=== PATIENT | male | born 1985 | race African-American/Black ===

== ENCOUNTER 2023-11-02 15:13 | Emergency (ER) | payer MEDICAID, SELFPAY ==
[2023-11-02 15:31] VITALS: BP 110/76; PULSE 75; RESP 18; TEMP 36.8; O2SAT 97; BMI 25.5
--- NOTE | 2023-11-02 15:31 | ED.URI ---
HPI - URI/Sore Throat General Chief Complaint: Upper Respiratory Symptoms Stated Complaint: Covid symptoms Time Seen by Provider: 11/02/23 15:58 Source: patient Mode of arrival: ambulatory Limitations: no limitations History of Present Illness HPI Narrative: this is a 38-year-old male with no known medical history presents to the ER with complaints of 3 days of cough, feeling lightheaded, stuffy nose, body aches and sore throat. No fevers, chills, chest pain, shortness of breath, vomiting, diarrhea, abdominal pain, neck pain, neck stiffness, skin rash. no recent travel or sick contact Related Data Allergies Allergy/AdvReac Type Severity Reaction Status Date / Time No Known Allergies Allergy Verified 11/02/23 15:31 Review of Systems Review of Systems: Yes all other systems are reviewed and are negative Constitutional: Constitutional: Reports no additional constitutional complaints, Reports body ache(s), Denies chills, Denies fever(s), Denies headache(s) and Denies weakness Eyes: Eyes: Reports no additional eye complaints and Denies change in vision ENT: Reports system reviewed and no additional complaints, except as documented, Reports dizziness, Denies headache(s), Reports nasal congestion, Denies nasal discharge, Denies neck pain and Reports sore throat Cardiovascular: Cardiovascular: Reports no additional cardiovascular complaints, Denies chest pain, Denies leg edema and Denies dyspnea Respiratory: Respiratory: Reports no additional respiratory complaints, Reports cough and Denies dyspnea Gastrointestinal: Gastrointestinal: Reports no additional gastrointestinal complaints, Denies abdominal pain, Denies diarrhea, Denies nausea and Denies vomiting Genitourinary: Genitourinary: Denies urinary incontinence Musculoskeletal: Musculoskeletal: Reports no additional musculoskeletal complaints, Denies back pain, Denies arthralgias, Denies joint swelling, Denies neck pain, Denies numbness and Denies tingling Integumentary/Breasts: Skin/Breast: Reports system reviewed and no additional complaints, except as docu and Denies rash Neurologic: Reports system reviewed and no additional complaints, except as documented, Denies Abnormal speech present, Reports dizziness, Denies headache(s), Denies numbness, Denies tingling and Denies weakness PMFSH Past Medical History Attestation statement: The following information was validated with the patient. Source: old records reviewed and nursing notes reviewed Physical Exam Vital Signs: Vital Signs: Last Vital Signs Temp 98.2 F 11/02/23 15:31 Pulse 75 11/02/23 15:31 Resp 18 11/02/23 15:31 BP 110/76 11/02/23 15:31 Pulse Ox 97 11/02/23 15:31 O2 Del Method Room Air 11/02/23 15:31 BMI result Body Mass Index 25.5 Const: General: cooperative, healthy appearing, comfortable and no acute distress Orientation/consciousness: patient oriented x3 Limitations: no limitations HEENT: Head: Yes normal to inspection Ears: hearing grossly normal bilaterally and TM's normal bilaterally General nose exam: Normal external nose present Face and sinus: Yes normal facial exam Mouth: Normal oral and palatal mucosa present Throat: Yes posterior oropharynx normal, Yes tonsils normal and Yes uvula midline Eyes: General: appearance normal, both eyes and all related structures Pupils: Equal, round and reactive pupils present Neck: Neck: Yes normal visual inspection, Yes full ROM, Yes no lymphadenopathy and Yes no meningeal signs Chest: Chest palpation & inspection: normal inspection of the chest Resp: Effort & Inspection: normal respiratory effort Auscultation: clear to auscultation bilaterally Cardio: Rate: regular rate Rhythm: regular rhythm Peripheral pulses: Peripheral pulses 2+ throughout GI: Inspection: Yes normal to inspection Palpation (GI): Soft to palpation and nontender Auscultation: normal bowel sounds Back/Spine/Pelvis: Thoracic/Lumbar Spine: thoracic and lumbar spine normal to inspection Skin: General skin exam: no rashes or lesions noted Neuro: General: patient oriented x3, no meningeal signs, no focal motor deficits and normal sensation to monofilament Cranial nerves: Yes Equal, round and reactive pupils present Cognition (Neuro): normal cognition Speech: No Abnormal speech present Gait exam (Neuro): Normal gait present Motor exam (neuro): 5/5 motor strength present throughout Extrem: General: Yes normal to inspection, Yes no pedal edema and Yes no calf tenderness Course Course Course Narrative: This is an RME: Additional HPI, ROS, PE not included below will be deferred to primary provider. Patient is a 38-year-old male who presents emergency department for evaluation of lightheadedness, nasal congestion, body aches, sore throat x3 days. Sent home from work early, needs return to work note. Plan: Viral testing, strep a Medical Decision Making Medical Decision Making MDM Narrative: this is a 38-year-old male with no known medical history presents to the ER with complaints of 3 days of cough, feeling lightheaded, stuffy nose, body aches and sore throat. No fevers, chills, chest pain, shortness of breath, vomiting, diarrhea, abdominal pain, neck pain, neck stiffness, skin rash. no recent travel or sick contact Exam is benign VSS Will send viral and strep testing Differential Diagnosis Differential Diagnoses: The differential diagnosis associated with the presentation includes influenza, viral syndrome, strep pharyngitis Low concern for RPA, MANAGER MAC, epiglottitis, Lexa's angina Admission/Observation Consideration of admission/observation: Escalation of care including admission/observation considered COVID test is positive. No hypoxia requiring supplemental oxygen and or admission to the hospital Lab Data [facility] Lab Attestation statement: I reviewed the patient's lab results. Labs: Lab Results 11/02/23 Range/Units 15:43 Influenza Type A (PCR) NEGATIVE (Negative) Influenza Type B (PCR) NEGATIVE (Negative) RSV RNA Qual (PCR) NEGATIVE (Negative) SARS-CoV-2 RNA (RT-PCR) POSITIVE A (Negative) S. pyogenes GrpA YVETTE Negative (Negative) Tests considered The following testing was considered but not selected: no hypoxia or tachypnea to suggest need for chest x-ray Prescription Management I considered prescription management with: Antiviral and Antibiotic Discharge Plan Discharge Clinical Impression: COVID-19 Patient Disposition: Home, Self-Care Instructions: COVID-19 (Coronavirus Disease 2019) (ED) Additional Instructions: Your COVID test is positive. Please quarantine for 5 days then mask for an additional 5 days when leaving the house. Take Motrin or Tylenol for any pain or fever Increase fluids, rest Return for any chest pain or shortness of breath We did discuss the antiviral medications that are available for the treatment of COVID with they do have quite a few side effects so we decided not to prescribe medication for you after we discuss this with you. Referrals: Physician,Florencio J [Primary Care Provider] - 1 week Stand Alone Forms: Work/School Release
[2023-11-02 16:03] LABS: IDNOW Serial# 08D9AD1C; Strep A Nucleic Acid Negative (Negative)
[2023-11-02 16:27] LABS: Influenza A PCR NEGATIVE (Negative); Influenza B PCR NEGATIVE (Negative); Resp Syncy Virus RNA Qual PCR NEGATIVE (Negative); SARS COV2 PCR INHOUSE POSITIVE (Negative)
== END 2023-11-02 17:10 | disposition home or self-care (01) ==
PROVIDERS: Nurse Practitioner Family; Emergency Provider Emergency Medicine
DX: U07.1 COVID-19 (principal); R05.9 Cough, unspecified; R42 Dizziness and giddiness; J02.9 Acute pharyngitis, unspecified
CPT/HCPCS: 0241U; 87651; 99283

== ENCOUNTER 2024-07-27 10:32 | Emergency (ER) | payer MEDICAID, SELFPAY ==
--- NOTE | ~2024-07-27 | XR_ITS ---
EXAMINATION: XR HAND, RIGHT CLINICAL INFORMATION: trauma, pain COMPARISON: None available. TECHNIQUE: PA, lateral, and oblique views of the right hand. FINDINGS: The patient appears to demonstrate a soft tissue defect of the soft tissues at the radial aspect of the palm. No radiopaque foreign body is identified. No fracture or dislocation is appreciated. Bony mineralization appears preserved. No lytic or sclerotic bony lesion is seen. The joint spaces appear maintained. XR/XR hand RT min 3V IMPRESSION: Findings as above. Electronically signed by: Frankie Amaya MD 07/27/2024 01:07 PM EST
[2024-07-27 10:39] VITALS: BP 128/82; PULSE 82; O2SAT 97
[2024-07-27 11:21] VITALS: BP 114/79; PULSE 60; RESP 16; TEMP 37; O2SAT 98; BMI 25.0
--- NOTE | 2024-07-27 11:22 | ED_ITS ---
HPI - General Adult General Chief complaint: Wound/Laceration Stated complaint: Hand laceration from knife 3 inches deep r hand Time Seen by Provider: 07/27/24 11:30 Source: patient Mode of arrival: ambulatory Limitations: no limitations History of Present Illness ED Provider: Evita Thornton PA-C HPI narrative: Patient is a 39 year old assigned male at with no reported medical history presenting to the emergency department today with a right hand laceration. Patient states that his girlfriend and him were horsing around when she turned toward him with a knife and he reflexively went to catch it and caught the blade - cutting his right hand. Patient states that he is up to date on his tetanus status. Patient states that he is unable to straighten his right index finger. Patient denies any dizziness, lightheadedness, abdominal pain, nausea, vomiting, fever, chills, blurry vision, double vision, loss of vision, chest pain, difficulty breathing, shortness of breath, back pain, night sweats, pain with urination, increased urinary frequency, increased urinary urgency, blood in his urine or stool, syncope or a near syncopal episode, bowel incontinence, bladder incontinence, or any other complaints at this time. Onset (ago): minute(s) Location: right and upper extremity Relieving factors: none Exacerbating factors: none Associated symptoms: denies other symptoms Treatments prior to arrival: none Related Data Previous Rx's ?Medication ?Instructions ?Recorded amoxicillin 875 mg-potassium 1 tab PO BID 10 days #20 tabs 07/27/24 clavulanate 125 mg tablet Allergies Allergy/AdvReac Type Severity Reaction Status Date / Time No Known Allergies Allergy Verified 07/27/24 11:23 Review of Systems 2 Constitutional: Constitutional: Reports no additional constitutional complaints, Denies chills, Denies fever(s) and Denies night sweats Eyes: Eyes: Reports no additional eye complaints, Denies blurry vision, Denies change in vision, Denies diplopia, Denies eye discharge, Denies loss of vision and Denies eye pain ENT: Denies dizziness Cardiovascular: Cardiovascular: Reports no additional cardiovascular complaints, Denies chest pain, Denies lightheadedness, Denies Loss of Consciousness and Denies dyspnea Respiratory: Respiratory: Reports no additional respiratory complaints and Denies dyspnea Gastrointestinal: Gastrointestinal: Reports no additional gastrointestinal complaints, Denies abdominal pain, Denies melena, Denies hematochezia, Denies change in bowel habits and Denies change in stool character Genitourinary: Genitourinary: Reports no additional male genitourinary complaints, Denies hematuria, Denies oliguria, Denies difficulty urinating, Denies dysuria, Denies urinary frequency, Denies urinary hesitancy, Denies urinary incontinence and Denies urinary urgency Musculoskeletal: Musculoskeletal: Reports no additional musculoskeletal complaints Comments: right hand laceration inability to move right index finger Neurologic: Denies dizziness and Denies loss of vision Psychiatric: Psychiatric: Reports no additional psychiatric complaints Endocrine: Endocrine: Reports no additional endocrine complaints Hematologic/Lymphatic: Hematologic/Lymphatic: Reports no additional hematologic/lymphatic complaints Allergic/Immunologic: Allergic/Immunologic: Reports no additional allergic/immunologic complaints PMFSH Past Medical History Attestation statement: The following information was validated with the patient. Source: old records reviewed and nursing notes reviewed Physical Exam ED Vital Signs: Vital Signs - 24 hr 07/27/24 11:21 07/27/24 13:07 Temperature 98.6 F 98.6 F Pulse Rate 60 60 Respiratory Rate 16 16 Blood Pressure 114/79 114/79 Pulse Oximetry 98 98 Oxygen Delivery Method Room Air Room Air BMI result Body Mass Index 25.0 Const General: cooperative, no acute distress, alert and awake Nutritional Appearance: well nourished Orientation/consciousness: patient oriented x3 Limitations: no limitations HENMT Head: Yes normal to inspection and Yes atraumatic Ears: hearing grossly normal bilaterally and external ears normal General nose exam: Normal external nose present, no nasal discharge noted and no epistaxis Face and sinus: Yes normal facial exam, No abrasion and No laceration Mouth: Normal oral and palatal mucosa present, no drooling and no muffled voice Eyes General: appearance normal, both eyes and all related structures Periorbital: periorbital findings normal Eyelids: Yes eyelids normal Conjunctivae: conjunctivae normal Pupils: Equal, round and reactive pupils present EOM: EOMs intact bilaterally Neck Neck: Yes normal visual inspection, Yes full ROM and Yes no lymphadenopathy Chest Chest palpation & inspection: normal inspection of the chest Resp Effort & Inspection: normal respiratory effort and able to speak in complete sentences GI Inspection: Yes normal to inspection Neuro General: patient oriented x3 and moves all extremities Cranial nerves: Yes Equal, round and reactive pupils present Cognition (Neuro): normal cognition Extrem Other: inability to move the right index finger General: Yes capillary refill normal Psych Appearance: grossly normal Mental Status: mental status grossly normal Affect: normal affect Attitude: cooperative Thought process: Normal thought process present Thought content: Normal thought content present Insight: Good insight present (Psych) Course Course Course Narrative: RME: 39 yold male presents to the ED for right hand laceration after grabbing knife from [employer] as a joke while she was trying to cook. Palm laceration on exam with tendon exposure. unable to move left index finger. tendon cut. laceration is deep. [place] [facility] [place] [facility] Medications Administered Discontinued Medications Generic Name Dose Route Start Last Admin Trade Name Freq PRN Reason Stop Dose Admin Amoxicillin/Clavulanate Potassium 875 mg 07/27/24 12:38 07/27/24 13:13 Amoxicillin/Potassium Clav 875 Mg Tablet PO 07/27/24 12:39 875 mg ONCE ONE Administration Lidocaine HCl 20 ml 07/27/24 11:44 07/27/24 11:53 Lidocaine Hcl 1 % Mpf 5 Ml Vial SUBCUT 07/27/24 11:45 20 ml ONCE ONE Administration Morphine Sulfate 4 mg 07/27/24 11:44 07/27/24 11:52 Morphine Sulfate 4 Mg/Ml Cartridge IM 07/27/24 11:45 4 mg ONCE ONE Administration Protocol Procedures Laceration Laceration 1: Site: hand Side (If applicable): right Size (cm): 10 Description: linear Depth: involves tendon Local Anesthetic: lidocaine 1% Amount of anesthesia used (mL): 10 Pre-repair: wound explored and irrigated extensively Skin layer closed with: other (prolene) Size (cm): 4-0 Number of sutures: 6 Technique: simple, interrupted Medical Decision Making Medical Decision Making [facility] Narrative: Patient is a 39 year old assigned male at with no reported medical history presenting to the emergency department today with a right hand laceration. Patient's physical exam showed a 10cm right hand laceration with tendon involvement and the inability of the patient to flex or extend the right index finger. Patient's right hand x-ray showed no acute gricelda process. I spoke to the orthopedist communication analyst who recommended loosely approximating the wound edges and having the patient follow up in their office for probable surgery on 07/29/2024. I explained my physical exam findings as well as all test results to the patient. I answered all questions asked by the patient. I loosely approximated the patient's wound edges with 6 simple interrupted sutures, without incident. Patient's PMS / ROM was the same pre and post procedure as noted in the physical exam portion of this note. Patient's wound was then bandaged with a non stick dressing and loose web roll gauze. I stressed the importance of the patient taking his medication as directed (either prescribed or as the over the counter packaging recommends). I stressed the importance of the patient following up with his primary care provider and the orthopedic team on 07/28/2024 as directed. I stressed the importance of the patient returning to the emergency department immediately if his symptoms were to worsen or if he were to develop any dizziness, shortness of breath, difficulty breathing, chest pain, blurry vision, loss of vision, nausea, vomiting, abdominal pain, fever, chills, back pain, or any other complaints. Patient verbalized agreement and understanding with this treatment plan and discharge. Differential Diagnosis Differential Diagnoses: The differential diagnosis associated with the presentation includes Laceration Lacerated tendon Admission/Observation Consideration of admission/observation: Escalation of care including admission/observation considered Patient would have been admitted to the hospital had his work up had any findings where hospital admission was appropriate and his clinical presentation warranted hospital admission. Consult Healthcare Provider Management of the patient was discussed with: Denture Packer (spoke to the orthopedic team as noted in the MDM Rationale portion of this note.) Independent Interpretation I performed an independent interpretation of an: Plain X-Ray Interpretation: My interpretation is in agreement with the radiologist's impression of this imaging study. L EXAMINATION: XR HAND, RIGHT CLINICAL INFORMATION: trauma, pain COMPARISON: None available. TECHNIQUE: PA, lateral, and oblique views of the right hand. FINDINGS: The patient appears to demonstrate a soft tissue defect of the soft tissues at the radial aspect of the palm. No radiopaque foreign body is identified. No fracture or dislocation is appreciated. Bony mineralization appears preserved. No lytic or sclerotic bony lesion is seen. The joint spaces appear maintained. XR/XR hand RT min 3V IMPRESSION: Findings as above. Electronically signed by: Frankie Amaya MD 07/27/2024 01:07 PM [facility] [place] Dictated By: Frankie Amaya Signed By: Electronically signed by Frankie Amaya 07/27/24 1307 Radiology Impression Discussion of test interpretation with radiology: I have reviewed the radiologist's reading. Prescription Management I considered prescription management with: Antibiotic (given patient's clinical presentation and recommendations from the orthopedic team - patient prescribed an antibiotic. ) Critical Care Time Critical Care Time Critical Care Time: Yes Total Critical Care Time: 42 Attestation: I spent 42 minutes of Critical Care Time with this patient. This does not include time spent on separately reported billable procedures. Discharge Plan Discharge Clinical Impression: Hand laceration Patient Disposition: Home, Self-Care Instructions: Laceration (DC) Additional Instructions: Your laceration is complex and will require surgical intervention. Today - I loosely approximated the edges of your wound. Your wound will be completely repaired by the orthopedic team in the coming days. Take your antibiotic as prescribed. Do NOT get the affected area wet. If you bleed through the bandage - you may change it with the supplies given. If you repeatedly bleed through - return to the ER [facility]. Have NOTHING by mouth after midnight tonight just in case the orthopedic team decides to perform the repair tomorrow (07/28/2024). Follow up with your primary care provider and the orthopedic team on 07/28/2024. Return to the emergency department immediately if your symptoms worsen or if you develop any dizziness, shortness of breath, difficulty breathing, chest pain, blurry vision, loss of vision, nausea, vomiting, abdominal pain, fever, chills, back pain, or any other complaints. Prescriptions: New amoxicillin-pot clavulanate 875-125 mg tablet 1 tab PO BID 10 Days Qty: 20 0RF Referrals: [facility] Family Medicine [Provider Group] (Call to establish and follow up with a primary care provider. If you already have a primary care provider, please follow up with them.) [facility] Primary [facility] [Provider Group] (Call to establish and follow up with a primary care provider. If you already have a primary care provider, please follow up with them.) [facility] Primary CareLana [Provider Group] (Call to establish and follow up with a primary care provider. If you already have a primary care provider, please follow up with them.) [facility] Orthopedic Surgeons [Provider Group] (Call to establish and follow up with the orthopedic group tomorrow (07/28/2024).) Stand Alone Forms: Work/School Release Interventions: ED Discharge Assessment Last Done: 07/27/24 13:07 Discharge Date/Time: 07/27/24 13:15 Print Language: Maltese
[2024-07-27] MEDS: Morphine Sulfate 4 MG/ML CARTRIDGE IM (11:52)
[2024-07-27] MEDS: Lidocaine HCl 1 % MPF 5 ML VIAL 20 ML SUBCUT (11:53)
[2024-07-27 13:07] VITALS: BP 114/79; PULSE 60; RESP 16; TEMP 37; O2SAT 98
[2024-07-27] MEDS: Amoxicillin/Potassium Clav 875 MG TABLET PO (13:13)
== END 2024-07-27 13:15 | disposition home or self-care (01) ==
PROVIDERS: Emergency Provider Emergency Medicine Emergency Medical Services
DX: S61.411A Laceration without foreign body of right hand, initial encounter (principal); W26.0XXA Contact with knife, initial encounter; Y93.83 Activity, rough housing and horseplay; Y92.9 Unspecified place or not applicable; Y99.9 Unspecified external cause status
CPT/HCPCS: 12044; 73130; 96372; 99282; 99284; J2003; J2270

== ENCOUNTER 2024-07-28 14:57 | Outpatient (AMB) | payer MEDICAID, SELFPAY ==
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
== END 2024-07-28 16:37 | disposition home or self-care (01) ==
PROVIDERS: Visit Provider Orthopaedic Surgery
DX: S61.411A Laceration without foreign body of right hand, initial encounter (principal); S61.219A Laceration without foreign body of unspecified finger without damage to nail, initial encounter; S66.921A Laceration of unspecified muscle, fascia and tendon at wrist and hand level, right hand, initial encounter; S64.40XA Injury of digital nerve of unspecified finger, initial encounter
CPT/HCPCS: 99204

== ENCOUNTER → 2024-07-28 14:57 | Outpatient (BNVA) | payer MEDICAID, SELFPAY | PROVIDERS: Visit Provider Orthopaedic Surgery | DX: S61.411A Laceration without foreign body of right hand, initial encounter (principal); S61.219A Laceration without foreign body of unspecified finger without damage to nail, initial encounter; S66.921A Laceration of unspecified muscle, fascia and tendon at wrist and hand level, right hand, initial encounter; S64.40XA Injury of digital nerve of unspecified finger, initial encounter; R20.0 Anesthesia of skin | CPT/HCPCS: 99202 ==

== ENCOUNTER 2024-12-29 20:38 | Emergency (ER) | payer MEDICAID, SELFPAY ==
[2024-12-29 20:50] VITALS: BP 103/59; PULSE 58; RESP 16; TEMP 36.9; O2SAT 98; BMI 23.6
--- NOTE | 2024-12-29 20:54 | ED.GENADULT ---
HPI - General Adult General Chief complaint: Extremity Problem Stated complaint: Unable to move R index finger/post surgery Time Seen by Provider: 12/30/24 01:17 Source: patient, RN notes reviewed and old records reviewed Mode of arrival: ambulatory Limitations: no limitations History of Present Illness ED Provider: Bebeto HPI narrative: 39-year-old male presents for evaluation of ?I need to know what is going on with my finger. ? The patient was seen in this ER on 07/27/2024 for a complicated a hand laceration. He follow up with up the following day with hand surgery, Dr. Ryan and was ultimately referred to [facility] for definitive treatment. He had a laceration to the right index finger flexor tendon as well as radial digital nerve. The patient followed up with Dr. Garrison, hand surgery in [facility] and had corrective surgery He was concerned that it has been several months and he still has reduced range of motion to the right index finger He currently denies any pain to the area Related Data Previous Rx's ?Medication ?Instructions ?Recorded amoxicillin 875 mg-potassium 1 tab PO BID 10 days #20 tabs 07/27/24 clavulanate 125 mg tablet hydrocodone 5 mg-acetaminophen 325 1 tab PO Q8H PRN pain, severe #6 07/28/24 mg tablet tab-caps Allergies Allergy/AdvReac Type Severity Reaction Status Date / Time No Known Allergies Allergy Verified 12/29/24 20:53 Review of Systems Constitutional: Constitutional: Denies chills and Denies fever(s) ENT: Denies vertigo Musculoskeletal: Musculoskeletal: Denies arthralgias, Denies joint swelling, Reports limited range of motion and Reports numbness Neurologic: Denies vertigo and Reports numbness Psychiatric: Psychiatric: Denies anxiety [facility] Social History Social History Smoked in Last 30 Days: No Use of substances other than those prescribed or required for medical reasons: No Advance Directives: No Do you have a plan to hurt others: No Plan Physical Exam ED Vital Signs: Vital Signs - 24 hr 12/29/24 20:50 12/30/24 01:00 12/30/24 01:36 Temperature 98.5 F 97.8 F 97.8 F Pulse Rate 58 74 74 Respiratory Rate 16 17 17 Blood Pressure 103/59 L 135/78 135/78 Pulse Oximetry 98 99 99 Oxygen Delivery Method Room Air Room Air Room Air BMI result Body Mass Index 23.6 Const General: healthy appearing, comfortable, no acute distress, alert and awake Nutritional Appearance: well nourished Orientation/consciousness: patient oriented x3 HENMT Head: Yes normocephalic and Yes atraumatic Eyes Eyelids: Yes eyelids normal Conjunctivae: conjunctivae normal Sclerae: sclerae normal Corneas: corneas normal Pupils: Equal, round and reactive pupils present EOM: EOMs intact bilaterally Neck Neck: Yes full ROM Resp Effort & Inspection: normal respiratory effort, able to speak in complete sentences and not labored Skin General skin exam: elasticity normal Neuro General: patient oriented x3 Cranial nerves: Yes Equal, round and reactive pupils present and Yes Bilaterally intact EOM present Cognition (Neuro): normal cognition Extrem Other: Healed scar to the radial aspect of the base of the right index finger. The patient has reduced range of motion with flexion and extension. He is able to extend the finger to about 150?. He was only able to flex the finger to about 120? of flexion. Strength is limited with flexion-extension of the right index finger. There was no edema, no significant tenderness to palpation. Course Course Course Narrative: RME; 39-year-old male status post surgical repair for tendon injury of right index finger presents to ED for still unable to move finger. Patient has had referral for gastroparesis and [facility] where he was informed he did not do hand therapy. And it is not swollen not red negative for any signs of infection arterial occlusion. Medical Decision Making Medical Decision Making MDM Narrative: 39-year-old male presents for evaluation of inability to move his right index finger completely. The patient had a very complicated laceration in July of last year, 5 months ago. It does not appear that he was in the other acute issues. He has not had any further injury. There is no evidence of infection. The patient's seems upset with his lack of improvement after his surgery. I explained to the patient that he had a quite extensive laceration based on the notes and it was possible that he may never regained complete function of the right index finger. He will be referred back to hand surgery for follow-up Differential Diagnosis Differential Diagnoses: The differential diagnosis associated with the presentation includes Laceration of right index finger. Laceration of the nerve of the index finger. Laceration of tendon of index finger. Neuropathy Discharge Plan Discharge Clinical Impression: Injury of digital nerve of finger of right hand Patient Disposition: Home, Self-Care Additional Instructions: You need to follow up with hand surgery, the office number of Dr. Ryan is attached. It may not be possible to recover 100% function of the index finger due to the laceration of your tendon and nerve You may use ibuprofen or Tylenol as needed for pain Prescriptions: No Action amoxicillin-pot clavulanate 875-125 mg tablet 1 tab PO BID 10 Days Qty: 20 0RF hydrocodone-acetaminophen 5-325 mg tablet 1 tab PO Q8H PRN (Reason: pain, severe) Qty: 6 0RF Rx Instructions: Partial Fill upon patient request. Referrals: Kailee Ryan MD [Physician] - (follow up to nerve and tendon laceration of right hand) Interventions: ED Discharge Assessment Last Done: 12/30/24 01:36 Discharge Date/Time: 12/30/24 01:36 Print Language: Arabic
--- OUTSIDE RECORDS SUMMARY | 2024-12-29 23:32 | XMS_ITS | Clinical Summary ---
Author Organization [employer] Address [address] [place] [address] Care Team Providers Care Women'S Activities Adviser Name Role Phone Josias Romo MD Primary Care Prov ider Allergies No known active allergies Medications * This document contains information received from the source organization and may not represent a complete record from that organization. cyclobenzaprine (Flexeril) 10 MG tablet Take 1 tablet (10 mg) by mouth 3 times daily for 10 days. 30 tablet 09/03/2024 Active Active Problems Problem Noted Date Diagnosed Date Encounter for medical examination to establish c are 09/03/2024 Assessment & Plan (09/03/2024 2:28 PM EST): No pcp previously Hospitalizations: - ER 07/27 due to right hand palmar aspect laceration with a knife while cooking Pmhx: asthma (not on medication/treatment) Pshx: - All:- Meds: Ibuprofen PRN Extensor tendon laceration of right hand with op en wound 09/03/2024 Assessment & Plan (09/03/2024 2:35 PM EST): Patient went to er on 07/27 were laceration was closed and given antibiotics. He was referred to [facility], were he underwent tendon repair on 08/03. 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 09/03/2024 Assessment & Plan (09/03/2024 2:36 PM EST): Will refer to [facility] Acute right-sided thoracic back pain 09/03/2024 Assessment & Plan (09/03/2024 2:37 PM EST): Shoulder blade pain, started about 1 week ago, will prescibe muscle relaxan, may apply ice Encounters Date Type Department Care Team Description 11/20/2024 Population Health Risk Score [facility] ([facility]) Department [address] [place] [id number] Provider, Population Health Generic from Last 3 Months Family History Medical History Relation Name Comments No Known Problems Father No Known Problems Mother Cancer Neg Hx Relation Name Status Comments Father Mother Social History Tobacco Use Types Packs/Day Years Used Date Smoking Tobacco: Former Cigarettes 0.5 18 S tarted: 09/09/2003 Passive Smoke Exposure: Past Smokeless Tobacco: Never Alcohol Use Standard Drinks/Week Comments Never 0 (1 standard drink = 0.6 oz pur e alcohol) Depression Answer Date Recorded Patient Health Questionnaire-9 Score 12 09/03/2024 Patient Health Questionnaire-9 Score 12 09/03/2024 Last PHQ-9: Questionnaire Data Not on file 1 11/04/2023 Housing Stability Answer Date Recorded What is your housing situation today? I have herson martinez 09/03/[address] you li ve. Do you have problems with any of the following? None of the above 09/03/2024 Food Insecurity Answer Date Recorded Within the past 12 months, y ou worried that your food would run out before you got money to buy more: Never True 09/03/2024 Within the past 12 months,th e food you bought just didn't last and you didn't have enough money to get more: Never True Transportation Answer Date Recorded In the past 12 months, has l ack of transportation kept you from medical appts, meetings, work or from getting things needed for daily living? Yes, it has kept me from non-medical meetings, work, or getting things that I need 09/03/2024 Utilities Answer Date Recorded In the past 12 months, has t he electric, gas, oil or water company threatened to shut off services in your home? No 09/03/2024 Depression Answer Date Recorded Patient Health Questionnaire-2 Score 6 09/03/2024 Internet Access Answer Date Recorded Internet Access Q1 Yes 09/03/2024 Internet Access Q2 Not on file 09/03/2024 Sex and Gender Information Value Date Recorded Sex Assigned at Male 09/03/2024 1:44 PM EST Legal Sex Male 1:44 PM EST Gender Identity Male 09/03/2024 1:57 PM EST Sexual Orientation Straight 09/03/2024 1: 57 PM EST Plan of Treatment Health Maintenance Due Date Last Done Comments HIV Screening 1987 Lipid Panel 1987 Family Planning (PISQ) 2002 Hepatitis C Screening 2005 DTaP/Tdap/Td Vaccines (1 - Tdap) 2006 Hepatitis B Vaccines (1 of 3 - 19+ 3-dose series) 2006 COVID-19 Vaccine (1 - 2023-2 5 season) 2024 Influenza Vaccine (#1) 2024 Depression Monitoring 03/04/2025 09/03/2024 , 09/03/2024 Alcohol/Substance Use Screening 09/03/2025 09/03/2024 Depression Screening 09/03/2025 09/03/2024, 09/03/2024 SDOH Screening 09/03/2025 09/03/2024 Tobacco Screening 09/03/2025 09/03/2024 Zoster Vaccines (1 of 2) 2037 RSV Patients and Patients Aged 60 years or older (1 - 1-dose 75+ series) 2062 HIB Vaccines Aged Out No longer eligi ble based on patient's age to complete this topic HPV Vaccines Aged Out No longer eligi ble based on patient's age to complete this topic Hepatitis A Vaccines Aged Out No long er eligible based on patient's age to complete this topic IPV Vaccines Aged Out No longer eligi ble based on patient's age to complete this topic Meningococcal Vaccine Aged Out No ruth ann annie eligible based on patient's age to complete this topic Pneumococcal Vaccine: Pediatrics (0 to 5 Years) and At-Risk Patients (6 to 49) Years) Aged Out No longer eligible b ased on patient's age to complete this topic RSV under 20 months Aged Out No longe r eligible based on patient's age to complete this topic Rotavirus Vaccines Aged Out No longer eligible based on patient's age to complete this topic Insurance [facility] C3 Care Teams Women'S Activities Adviser Relationship Specialty Start Date End Date Josias Romo MD [address] [place] [id number] PCP - General Internal Medicine 09/03/24
--- OUTSIDE RECORDS SUMMARY | 2024-12-29 23:32 | XMS_ITS | Clinical Summary ---
Author Organization [facility] Address [address] [place] [address] Care Team Providers Care Patent Clerk Name Role Phone Patient, Has No Pcp Or Ref Primary Care Provider Unavailable Allergies No known active allergies Medications No known medications Active Problems Problem Noted Date Diagnosed Date Open wound of right hand with tendon involvement 07/30/2024 Finger numbness 07/30/2024 Social History Tobacco Use Types Packs/Day Years Used Date Smoking Tobacco: Some Days Cigarettes Passive Smoke Exposure: Current Smokeless Tobacco: Never Tobacco Cessation:Ready to Q uit: Not Asked; Counseling Given: Not Answered Comments:Smokes 6 cigarettes a week (has smoked for 5 years total Passive Exposure Comments:5-6 cigarettes/week Alcohol Use Standard Drinks/Week Comments Not Currently 0 (1 standard drink = 0.6 oz pur e alcohol) Sex and Gender Information Value Date Recorded Sex Assigned at Male 07/30/2024 11:59 AM EST Legal Sex Male 4:23 PM EST Gender Identity Not on file Sexual Orientation Not on file Last Filed Vital Signs Vital Sign Reading Time Taken Comments Blood Pressure 106/65 08/03/2024 12:45 PM EST Pulse 52 08/03/2024 12:42 PM EST Temperature 36.3 ??C (97.3 ??F) 08/03/2024 12:[address] Respiratory Rate 0 08/03/2024 12:40 PM EST Oxygen Saturation 99% 08/03/2024 12:45 PM EST Inhaled Oxygen Concentration - - Weight 68.2 kg (150 lb 5.7 oz) 08/03/2024 8:34 A M EST Height 165.1 cm (5' 5 ) 08/03/2024 8:34 AM EST Body Mass Index 25.02 08/03/2024 8:34 AM EST Plan of Treatment Health Maintenance Due Date Last Done Comments HIV Screening 1987 Hepatitis C Screening 1987 Varicella Vaccines (1 of 2 - 13+ 2-dose series) 1999 Hepatitis B Vaccines (1 of 3 - 19+ 3-dose series) 02/08 Pneumococcal Vaccine: Pediat fozia (0-5 Years) and At-Risk Patients (6-50 Years) (1 of 2 - PCV) 2006 DTaP,Tdap,and Td Vaccines (1 - Tdap) 2009 COVID-19 Vaccine (1 - 2023- season) 2024 Alcohol/Substance Use Screening 09/09/2024 Depression Screening and Follow-Up 09/09/2024 Social Drivers of Health Annual Screening 09/09/2024 Influenza Vaccine (Season Ended) 2025 RSV Vaccine (60+ years old a nd patients) (1 - 1-dose 75+ series) 2062 Medical Devices Implanted Type Area Donor Support Technician Device Identifier Shelf Expiration Date Model / Serial / Lot Nerve Guide Matrix [id number] Neuragen 3d - [id number] Implanted:Qty: 1 on 08/03/2024 by Kwasi Garrison MD at [facility] Implant Right: Hand [employer] 08/08/2024 [id number] / / [id number] Insurance [facility] Advance Directives Documents on File Type Date Recorded Patient Solar Resource Assessor Expl anation Health Care Proxy 08/03/2024 9:23 AM 11-2 Care Teams Patent Clerk Relationship Specialty Start Date End Date Patient, Has No Pcp Or Ref DO NOT EDIT THIS RECORD VIA PROVIDER ON THE FLY PCP - General Coat Tailor 07/28/24
--- OUTSIDE RECORDS SUMMARY | 2024-12-29 23:32 | XMS_ITS | Referral Summary ---
Author Organization [facility] Address [address] [place] [address] Care Team Providers Care Junior Underwriter Name Role Phone Patient, Has No Pcp [...] 08/03/2024 8:34 AM EST Plan of Treatment Not on file Medical Devices Implanted Type Area Shopper Device Identifier Shelf Expiration Date Model / Serial / Lot Nerve Guide Matrix [id number] Neuragen 3d - [id number] Implanted:Qty: 1 on 08/03/2024 by Kwasi Garrison MD at [facility] Implant Right: Hand [employer] 08/08/2024 [id number] / / [id number] [facility] Documents on File Type Date Recorded Patient Air Technician Expl anation Health Care Proxy 08/03/2024 9:23 AM 07-11 Care Teams Junior Underwriter Relationship Specialty Start Date End Date Patient, Has No Pcp Or Ref DO NOT EDIT THIS RECORD VIA PROVIDER ON THE FLY PCP - General Photovoltaic Subcontractor 07/28/24
[2024-12-30 01:00] VITALS: BP 135/78; PULSE 74; RESP 17; TEMP 36.6; O2SAT 99
[2024-12-30 01:36] VITALS: BP 135/78; PULSE 74; RESP 17; TEMP 36.6; O2SAT 99
== END 2024-12-30 01:36 | disposition home or self-care (01) ==
PROVIDERS: Emergency Provider Emergency Medicine
DX: S64.490A Injury of digital nerve of right index finger, initial encounter (principal); M79.641 Pain in right hand; X58.XXXA Exposure to other specified factors, initial encounter; Y93.9 Activity, unspecified; Y92.9 Unspecified place or not applicable; Y99.8 Other external cause status
CPT/HCPCS: 99283; 99284

== ENCOUNTER 2025-02-01 17:16 | Emergency (ER) | payer MEDICAID, SELFPAY ==
[2025-02-01 17:18] VITALS: BP 112/54; PULSE 63; RESP 18; TEMP 36.6; O2SAT 98; BMI 24.1
--- NOTE | 2025-02-01 17:21 | ED_ITS ---
HPI - General Adult General Chief complaint: Extremity Injury, Upper Stated complaint: right hand pain Related Data Previous Rx's ?Medication ?Instructions ?Recorded amoxicillin 875 mg-potassium 1 tab PO BID 10 days #20 tabs 07/27/24 clavulanate 125 mg tablet hydrocodone 5 mg-acetaminophen 325 1 tab PO Q8H PRN pain, severe #6 07/28/24 mg tablet tab-caps Allergies Allergy/AdvReac Type Severity Reaction Status Date / Time No Known Allergies Allergy Verified 02/01/25 17:22 [facility] Social History Social History Advance Directives: No Advance Directives Information Provided: No Do you have a plan to hurt others: No Plan Physical Exam ED Vital Signs: BMI result Body Mass Index 24.1 Course Course Course Narrative: RME, this is a rapid medical exam performed by Vern Tate please refer to primary provider for complete H&P- 39 year old male presents for evaluation of right index finger pain. He had a complicated laceration in July of last year and required specialist evaluation and surgery at [facility] with Dr Garrison. today while changing his child he had increased pain and swelling. He reports that the hand went cold. He reports trying to follow up with his surgeon and has been unsuccessful Discharge Plan Discharge Clinical Impression: Hand pain, right Patient Disposition: Left W/O Completing Treatment Prescriptions: No Action amoxicillin-pot clavulanate 875-125 mg tablet 1 tab PO BID 10 Days Qty: 20 0RF hydrocodone-acetaminophen 5-325 mg tablet 1 tab PO Q8H PRN (Reason: pain, severe) Qty: 6 0RF Rx Instructions: Partial Fill upon patient request. Discharge Date/Time: 02/01/25 19:45
--- OUTSIDE RECORDS SUMMARY | 2025-02-01 19:44 | XMS_ITS | Encounter Summary ---
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 Name Role Phone Josias Romo MD Primary Care Prov ider Reason for Visit * Reason Onset Date Comments new patient visit 09/03/2024 Encounter Details Date Type Department Care Team ([facility] st Contact Info) Description 09/03/2024 Telephone [facility] [address] [place] [address] Josias Romo MD [address], [place] [phone] new patient visit Social History Tobacco Use Types Packs/Day Years [...] Orientation Straight 09/03/2024 1: 57 PM EST documented as of this encounter Functional Status * Over the past 2 weeks, how often have you been bothered by any of the following problems? Question Answer Date of Assessment Author Patient Health Questionnaire -2 Score 6 09/03/2024 1:59 PM EST Miles Mustafa MA * Little interest or pleasure in doing things Answer Date of Assessment Author Nearly every day 09/03/2024 1:59 PM EST Lu Johnson MA * Feeling down, depressed, or hopeless Answer Date of Assessment Author Nearly every day 09/03/2024 1:59 PM Lu Moulton MA * Trouble falling or staying asleep, or sleeping too much Answer Date of Assessment Author Nearly every day 09/03/2024 1:59 PM Lu Moulton MA * Feeling tired or having little energy Answer Date of Assessment Author Nearly every day 09/03/2024 1:59 PM Lu Moulton MA * Poor appetite or overeating Answer Date of Assessment Author Not at all 09/03/2024 1:59 PM EST Lu Mustafa MA * Feeling bad about yourself - or that you are a failure or have let yourself or your family down Answer Date of Assessment Author Not at all 09/03/2024 1:59 PM Lu Rubin MA * Trouble concentrating on things, such as reading the newspaper or watching television Answer Date of Assessment Author Not at all 09/03/2024 1:59 PM Lu Rubin MA * Moving or speaking so slowly that other people could have noticed? Or the opposite - being so fidgety or restless that you have been moving around a lot more than usual. Answer Date of Assessment Author Not at all 09/03/2024 1:59 PM Lu Rubin MA * Thoughts that you would be better off or hurting yourself in some way Answer Date of Assessment Author Not at all 09/03/2024 1:59 PM Lu Rubin MA * Patient Health Questionnaire-9 Score Answer Date of Assessment Author 12 09/03/2024 1:59 PM Lu Rubin MA * How difficult have these problems made it for you to do your work, take care of things at home, or get along with other people? Answer Date of Assessment Author Somewhat difficult 09/03/2024 1:59 PM EST Lu Ahn MA documented as of this encounter Miscellaneous Notes * Telephone Encounter - Bruce Browne - 09/03/2024 1:45 PM EST TC from pt needing to establish care due to new insurance . Pt had Hand surgery not too long ago at [facility] in [place]. Pt missed his visit and due to insurance change is now needing referral to hand specialist . documented in this encounter Plan of Treatment Not on file documented as of this encounter Visit Diagnoses Not on filedocumented in this encounter Additional Health Concerns Assessment Noted Time PHQ-9 Depression Total Score: 12 024 1:59 PM EST documented as of this encounter Care Teams Mold Burner Relationship Specialty Start Date End Date Josias Romo MD [address] [place] [phone] PCP - General Internal Medicine 09/03/24 documented as of this encounter
== END 2025-02-01 19:45 | disposition left against medical advice (07) ==
LOC: HO.ED 19:42
PROVIDERS: Emergency Provider Emergency Medicine
DX: M79.641 Pain in right hand (principal)
CPT/HCPCS: 99281

== ENCOUNTER 2025-06-16 12:52 | Emergency (ER) | payer MEDICAID, SELFPAY ==
--- NOTE | ~2025-06-16 | XR_ITS ---
EXAMINATION: XR SHOULDER, LEFT CLINICAL INFORMATION: pain near scapula COMPARISON: None available. TECHNIQUE: AP external rotation, Grashey, scapular Y, and axillary views of the left shoulder. FINDINGS: A.C. and glenohumeral joints are intact. There is no joint space narrowing or osteophytes. No fracture is demonstrated. XR/XR shoulder LT min 2V IMPRESSION: Unremarkable left shoulder. Electronically signed by: Tristen Koch MD 06/16/2025 01:32 PM EDT
[2025-06-16 13:03] VITALS: BP 111/80; PULSE 61; RESP 14; TEMP 36.6; O2SAT 100; BMI 22.0
--- NOTE | 2025-06-16 13:03 | ED_ITS ---
HPI - General Adult General Chief complaint: Back Pain/Injury Stated complaint: back pain to arm x 2 weeks Related Data Previous Rx's ?Medication ?Instructions ?Recorded amoxicillin 875 mg-potassium 1 tab PO BID 10 days #20 tabs 07/27/24 clavulanate 125 mg tablet hydrocodone 5 mg-acetaminophen 325 1 tab PO Q8H PRN pa in, severe #6 07/28/24 mg tablet tab-caps lidocaine 5 % topical patch 1 patch topical DAILY #30 ea 06/16/25 (Lidoderm) Allergies Allergy/AdvReac Type Severity Reaction Status Date / Time No Known Allergies Allergy Verified 06/16/25 20:00 Physical Exam ED Vital Signs: BMI result Body Mass Index 22.0 Course Course Course Narrative: This is a rapid medical exam performed by Alexy Dutta NP: Additional HPI, ROS, PE not included below will be deferred to primary provider. Patient is a 40y/o M presenting to the ED with complaint of pain under L scapula radiating up to neck x 2 weeks. Plan: labs, xray Patient left the emergency department before myself or any of the other clinicians could review or explain physical exam findings, test results, need or lack there of for additional testing, treatment options, or a treatment plan. Medical Decision Making Lab Data 06/16/25 13:28 06/16/25 13:28 Labs: Lab Results 06/16/25 Range/Units 13:28 WBC 6.5 (4.8-10.8) X10*3/uL RBC 4.63 (4.60-5.80) X10*6/uL Hgb 13.5 L (14.0-18.0) g/dl Hct 38.0 L (42.0-52.0) % MCV 82.1 (80.0-98.0) fL MCH 29.2 (27.0-33.0) pg MCHC 35.5 (31.0-36.0) g/dl RDW 13.2 (11.0-16.0) % Plt Count 265 (160-400) X10*3/uL MPV 8.7 L (9.4-12.4) fL Immature Gran % (Auto) 0.2 (0.0-0.4) % Neut % (Auto) 36.7 L (45-73) % Lymph % (Auto) 53.0 H (20-40) % Cooper % (Auto) 7.9 (2-11) % Eos % (Auto) 1.4 (0-4) % Baso % (Auto) 0.8 (0-2) % Lymph # (Auto) 3.4 (1.2-4.9) X10*3/uL Cooper # (Auto) 0.5 (0.1-1.2) X10*3/uL Eos # (Auto) 0.1 (0.0-0.4) X10*3/uL Baso # (Auto) 0.1 (0.0-0.2) X10*3/uL Abs Immat Gran (auto) 0.01 (0.00-0.03) X10*3/uL Absolute Neuts (auto) 2.4 (2.0-8.3) x10*3/uL Absolute Nucleated RBC 0.000 (0.0-0.012) X10*3/uL Nucleated RBC % (auto) 0.0 (0.0-0.2) /100WBC PT 11.9 (10.9-12.4) SEC INR 1.0 (0.9-1.1) Sodium 140 (135-145) mmol/L Potassium 4.3 (3.3-5.1) mmol/L Chloride 107 (96-108) mmol/L Carbon Dioxide 27 (22-29) mmol/L Anion Gap 10 L (12-20) BUN 10 (9-16) mg/dL Creatinine 1.26 (0.5-1.4) mg/dL Estim Creat Clear Calc 67.4 Estimated GFR > 60 Random Glucose 99 (60-115) mg/dL Calcium 9.7 (8.4-10.2) mg/dL Total Bilirubin 1.1 H (0.0-1.0) mg/dL AST 29 (5-37) U/L ALT 18 (0-40) U/L Alkaline Phosphatase 58 (39-117) U/L Total Protein 7.9 (6.5-8.0) g/dL Albumin 5.1 H (3.5-5.0) g/dL Discharge Plan Discharge Clinical Impression: Back pain Patient Disposition: Left W/O Completing Treatment Prescriptions: No Action lidocaine [Lidoderm] 5 % adhesive patch,medicated 1 patch topical DAILY Qty: 30 0RF Rx Instructions: leave on most painful area for up to 12 hrs amoxicillin-pot clavulanate 875-125 mg tablet 1 tab PO BID 10 Days Qty: 20 0RF hydrocodone-acetaminophen 5-325 mg tablet 1 tab PO Q8H PRN (Reason: pain, severe) Qty: 6 0RF Rx Instructions: Partial Fill upon patient request. Discharge Date/Time: 06/16/25 17:56
[2025-06-16 13:36] LABS: MANUAL DIFF FLAG NO
[2025-06-16 13:40] LABS: Hematocrit 38.0 % (42.0-52.0); Hemoglobin 13.5 g/dl (14.0-18.0); Imm Gran Abs Auto 0.01 X10*3/uL (0.00-0.03); Imm Gran Pct Auto 0.2 % (0.0-0.4); Lymphocytes Absolute Auto 3.4 X10*3/uL (1.2-4.9); Mean Corpuscular HGB Conc 35.5 g/dl (31.0-36.0); Mean Corpuscular Hemoglobin 29.2 pg (27.0-33.0); Mean Corpuscular Volume 82.1 fL (80.0-98.0); NRBC Abs Auto 0.000 X10*3/uL (0.0-0.012); NRBC Pct Auto 0.0 /100WBC (0.0-0.2); Platelet Count 265 X10*3/uL (160-400); Red Blood Count 4.63 X10*6/uL (4.60-5.80); White Blood Count 6.5 X10*3/uL (4.8-10.8)
[2025-06-16 13:53] LABS: Alanine Aminotransferase 18 U/L (0-40); Albumin Level 5.1 g/dL (3.5-5.0); Alkaline Phosphatase 58 U/L (39-117); Anion Gap 10 (12-20); Aspartate Amino Transferase 29 U/L (5-37); Blood Urea Nitrogen 10 mg/dL (9-16); Calcium 9.7 mg/dL (8.4-10.2); Carbon Dioxide 27 mmol/L (22-29); Chloride 107 mmol/L (96-108); Creatinine Clr Calc Pharmacy 67.4; Estimated Glomerular Filt Rate > 60; Potassium 4.3 mmol/L (3.3-5.1); Sodium 140 mmol/L (135-145); Total Protein 7.9 g/dL (6.5-8.0)
[2025-06-16 13:57] LABS: INTERNATIONAL NORM RATIO 1.0 (0.9-1.1); Prothrombin Time 11.9 SEC (10.9-12.4)
--- NOTE | 2025-06-16 17:53 | PC.NURSE ---
Informed by registration staff that patient had left dept. LWCT.
== END 2025-06-16 17:56 | disposition left against medical advice (07) ==
PROVIDERS: Registered Nurse Emergency; Emergency Provider Emergency Medicine
DX: M54.9 Dorsalgia, unspecified (principal); M25.512 Pain in left shoulder
CPT/HCPCS: 36415; 73030; 80053; 85025; 85610; 99281; 99283

== ENCOUNTER → 2025-06-16 13:04 | Outpatient (BNV) | payer MEDICAID, SELFPAY | PROVIDERS: Visit Provider Radiology Diagnostic Radiology | DX: M25.512 Pain in left shoulder (principal) | CPT/HCPCS: 73030 ==

== ENCOUNTER 2025-06-16 19:52 | Emergency (ER) | payer MEDICAID, SELFPAY ==
[2025-06-16 19:58] VITALS: BP 120/87; PULSE 77; RESP 16; TEMP 36.2; O2SAT 98; BMI 18.3
--- NOTE | 2025-06-16 19:58 | ED_ITS ---
HPI - Extremity Injury (Upper) General Chief Complaint: Extremity Injury, Upper Stated Complaint: General Symptoms Time Seen by Provider: 06/16/25 20:03 Source: patient Mode of arrival: ambulatory Limitations: no limitations History of Present Illness ED Provider: Di Lemus PA-C HPI narrative: Patient seeks medical attention today for evaluation of left-sided neck pain that radiates into his left upper arm. It has been going on for several months now. He has not sought medical attention until he thinks it could be because of the way he sleeps. Any time he rotates his neck it is reproducible. He has not found relief thin much he has even tried muscle relaxers and still not any better. He has not he denies any paresthesias or weakness. He is right-hand dominant. He has prior trauma to his right had before in the past so reports at baseline having decreased veterinarian poultry strength on that side. He is without any rashes and does not have any headaches or infectious symptoms. Patient was triaged and had imaging done of his left shoulder. Related Data Previous Rx's ?Medication ?Instructions ?Recorded amoxicillin 875 mg-potassium 1 tab PO BID 10 days #20 tabs 07/27/24 clavulanate 125 mg tablet hydrocodone 5 mg-acetaminophen 325 1 tab PO Q8H PRN pa in, severe #6 07/28/24 mg tablet tab-caps lidocaine 5 % topical patch 1 patch topical DAILY #30 ea 06/16/25 (Lidoderm) Allergies Allergy/AdvReac Type Severity Reaction Status Date / Time No Known Allergies Allergy Verified 06/16/25 20:00 Review of Systems Review of Systems: Yes all other systems are reviewed and are negative PMFSH Past Medical History Attestation statement: The following information was validated with the patient. Source: old records reviewed and nursing notes reviewed Physical Exam Exam: Exam: General: Appears in no acute distress, appears well nourished body habitus is normal, appears stated age. No septic or ill-appearing. Vitals reviewed normal, PMH/Social and Surgical hx reviewed including allergies and current medications. - reviewed for prior visits here. Head: Normocephalic, no obvious trauma or skin lesions noted. Eyes: EOMI, conjunctiva and sclera care ENMT: moist oral mucosa, no lymphadenopathy Neck: trachea midline, there is no midline tenderness step-offs or deformities of entire spine. Range of motion with left lateral cervical rotation and left lateral section reproduces pain. No deficit with range of motion any directions. His sternocleidomastoid muscle is mildly tender to palpation but no crepitus ecchymosis or palpable cords nontender right side, bilateral shoulder girdles nontender veterinarian poultry strength is 4+ left side 3+ on right side surgical scar noted in the thenar eminence of the right palm. Cap refill less than 3 seconds distal pulses 2+ no other bony tenderness to bilateral upper extremities. No skin lesions otherwise noted. Cardiovascular: peripheral perfusion normal, Regular heart rate, regular rhythm Respiratory: no respiratory distress, chest wall nontender Abdomen: nondistended Extremities: warm and moving without difficulty Psych: Cooperative Neuro: Alert and oriented. Vital Signs: Vital Signs: Last Vital Signs Temp 97.1 F 06/16/25 20:21 Pulse 77 06/16/25 20:21 Resp 16 06/16/25 20:21 BP 120/87 06/16/25 20:21 Pulse Ox 98 06/16/25 20:21 O2 Del Method Room Air 06/16/25 20:21 BMI result Body Mass Index 18.3 Medical Decision Making Medical Decision Making [facility] Narrative: Patient has a neck strain and will be discharged home. Patient has currently been stabilize in the without evidence of neurovascular compromise. Patient was negative by NEXUS criteria and therefore no imaging was performed/ordered. Patient?s symptoms not typical for other emergent conditions such as arterial dissection, osteomyelitis, epidural abscess, c-spine fracture, other spinal emergencies. Patient will be discharged with strict return precautions and follow up with primary MD within 24-48 hours for further evaluation. Differential Diagnosis Differential Diagnoses: The differential diagnosis associated with the presentation includes Admission/Observation Consideration of admission/observation: Escalation of care including admission/observation considered Tests considered The following testing was considered but not selected: would have considered imaging for acute injury or if there was concern for NVC. no bony tenderness Prescription Management I considered prescription management with: Pain Medication Social Determinants Patient?s care significantly limited by Social Determinants of Health including: Other Social Determinant of Health Critical Care Time Critical Care Time Critical Care Time: No Discharge Plan Discharge Clinical Impression: Acute cervical myofascial strain, Acute pain of left shoulder Patient Disposition: Home, Self-Care Instructions: Cervical Strain (ED) Additional Instructions: You were evaluated for your neck pain. Your history and physical exam is most consistent with a cervical/trapezius muscle strain. Rest: Avoid sudden movements of your neck, heavy lifting, twisting and turning.?? Use ice to the area for the first 24-48 hours, then you can use moist heat to the area (use a warm moist cloth or heating pad) for 20 minutes at a time, 3-4 times a day.? Gentle massage to tight muscles can help.? Using a sportscream like PhysicianPortal or Monitor can also help. Use Motrin/Advil (ibuprofen) 600 mg three times a day for the next 5 days, then every 6 to 8 hours? as needed for pain. Take ibuprofen with food to avoid stomach irritation.? In addition, You can use Tylenol (acetaminophen) 650 mg every 6 hrs as needed for pain.? Do not take more than 3000 mg in one day! Follow up with your PCP in the next few days to be re-evaluated.?? Go directly to the closest ER if you develop a severe headache, numbness or weakness in your arms or legs, dizziness, change in your vision, nausea, vomiting, or any other new, concerning symptoms. PERFORM THE FOLLOWING STRETCHES, PLEASE YOU TUBE THE NAME OF THE THEM IF YOU FORGOT HOW I DEMONSTRATED THEM. SEATED GENTLE UPPER TRAPEZIUS 2X A DAY 3 SETS HOLD FOR 30 SECONDS GENTLE LEVATOR SCAPULAE STRETCH 2X A DAY, 3 SETS HOLD FOR 30 SECONDS SUPINE CHIN TUCK 1X A DAY 30X SEATED SCAPULAR RETRACTION 1X D DAY, 30 X OPEN BOOK CHEST STRETCH ON TOWEL ROLL 2X A DAY 3 SETS HOLD FOR 30 SECONDS SIDELYING THORACIC LUMBAR ROTATION 2X A DAY 30 X Prescriptions: New lidocaine [Lidoderm] 5 % adhesive patch,medicated 1 patch topical DAILY Qty: 30 0RF Rx Instructions: leave on most painful area for up to 12 hrs No Action amoxicillin-pot clavulanate 875-125 mg tablet 1 tab PO BID 10 Days Qty: 20 0RF hydrocodone-acetaminophen 5-325 mg tablet 1 tab PO Q8H PRN (Reason: pain, severe) Qty: 6 0RF Rx Instructions: Partial Fill upon patient request. [place] [facility] [Provider Group, Orthopedics] Referral Note: would benefit with PT referral Interventions: ED Discharge Assessment Last Done: 06/16/25 20:21 Discharge Date/Time: 06/16/25 20:22 Print Language: Divehi
[2025-06-16 20:21] VITALS: BP 120/87; PULSE 77; RESP 16; TEMP 36.2; O2SAT 98
== END 2025-06-16 20:22 | disposition home or self-care (01) ==
PROVIDERS: Emergency Provider Emergency Medicine Emergency Medical Services
DX: S16.1XXA Strain of muscle, fascia and tendon at neck level, initial encounter (principal); M25.512 Pain in left shoulder; X58.XXXA Exposure to other specified factors, initial encounter; Y93.9 Activity, unspecified; Y92.9 Unspecified place or not applicable; Y99.9 Unspecified external cause status
CPT/HCPCS: 99282; 99283

== ENCOUNTER 2025-07-01 09:40 | Outpatient (REF) | payer OTHER, SELFPAY ==
--- NOTE | ~2025-07-01 | XR_ITS ---
EXAMINATION: XR CERVICAL SPINE CLINICAL INFORMATION: M54.2 - Cervicalgia COMPARISON: None available. TECHNIQUE: 3 views of the cervical spine were obtained. FINDINGS: There is straightening of the cervical lordosis. There is no prevertebral soft tissue swelling. C3-4 demonstrates minimal disc space narrowing and posterior osteophytes. C4-5 demonstrates minimal disc space narrowing and subtle endplate osteophytes. C5-6 demonstrates mild disc space narrowing and minimal endplate osteophytes. XR/XR cervical spine 3V IMPRESSION: There is straightening of the expected cervical lordosis. This can be idiopathic, but can also be related to degenerative change, muscle spasm, or posterior soft tissue injury. There is mild degenerative disc disease C3-4 through through C5-6 Electronically signed by: Tristen Koch MD 07/01/2025 11:26 AM EDT
== END 2025-07-01 09:41 | disposition home or self-care (01) ==
LOC: HO.XRAY 09:40
PROVIDERS: PCP Physician Assistant Medical; Visit Provider Physician Assistant Medical
DX: M54.2 Cervicalgia (principal); M79.602 Pain in left arm
CPT/HCPCS: 72040

== ENCOUNTER 2025-07-01 09:40 | Outpatient (AMB) | payer OTHER, SELFPAY ==
[2025-07-01 09:22] VITALS: BP 120/76; PULSE 55; TEMP 36.5; O2SAT 99; BMI 22.5
--- NOTE | 2025-07-01 09:22 | A.OFFPC_ITS ---
Vital Signs 07/01/25 09:22 Height 5 ft 5 in Weight 135 lb 8 oz BMI 22.5 BP 120/76 Blood Pressure Location Lt brachial Position Sitting Pulse 55 Pulse Source Pulse Oximeter Temp 97.7 F Temp Source Temporal Artery Scan Pulse Oximetry (%) 99 Oxygen Delivery Method Room Air Intake Visit Reasons: went to ED on 06/16 dx myofacial pain. 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 Accompanied by: Self / Same As Patient Allergies No Known Allergies Allergy (Verified 07/01/25 09:22) Medication List - Last Reconciled 07/18/25 by MELITON Borja cyclobenzaprine 5 mg PO TID PRN MDD FOR MUSCLE PAIN gabapentin 300 mg PO BEDTIME lidocaine 5% (Lidoderm) 1 patch topical DAILY methylprednisolone (Medrol (Cristo)) PO PER PKG DIR for 6 days Tobacco use date assessed: 07/01/25 Dental Screening Dental Screen Date: 07/01/25 Did you have a dental visit in the last 12 months?: Yes Did you have a dental problem in the last 6 months where you did not have access to dental care?: No HPI HPI Comments History of Present Illness Details The patient is a 40-year-old male presenting with neck and upper back pain. The pain began approximately three months ago, initially occurring sporadically before becoming persistent over the past three weeks. He describes the pain as severe, particularly when getting up or trying to sleep, and rates it as a 6 out of 10. The patient reports a sensation of pulling and tingling, which he finds difficult to articulate. He went to the ER on 06/16. He was diagnosed with a myofascial strain, he was prescribed lidocaine patches and has been using them excessively, along with Tylenol for pain relief. 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 He has donated plasma multiple times, which he speculates might be related to his symptoms. Medications: - Lidocaine patches for pain management - Tylenol for pain relief Patient was informed and verbally consented to the use of an ambient scribe for clinic note documentation during this visit. [facility] Medical History (Updated 07/01/25 @ 10:40 by MELITON Borja) Left arm pain Neck pain Family History (Updated 07/01/25 @ 09:53 by Fátima Reynaga MA) Mother No problems noted. Father No problems noted. Social History Housing: Apartment Patient Tobacco Use Status: Former Tobacco user e-Cigarette/Vaping Use: Former Use service: No Current occupational status: disabled Cognitive needs: No Hearing needs: No Vision needs: No Questionnaire PHQ-9 Over the last 2 weeks, how often have you been bothered by any of the following problems? 1. Little interest or pleasure in doing things: not at all 2. Feeling down, depressed, or hopeless: several days (sometime he feels some anxiety) 3. Trouble falling or staying asleep, or sleeping too much: nearly every day (trouble falling asleep due to back pain ) 4. Feeling tired or having little energy: not at all 5. Poor appetite or overeating: not at all 6. Feeling bad about yourself - or that you are a failure or have let yourself or your family down: not at all 7. Trouble concentrating on things, such as reading the newspaper or watching television: not at all 8. Moving or speaking so slowly that other people could have noticed. Or the opposite - being so fidgety or restless that you have been moving around a lot more than usual: not at all 9. Thoughts that you would be better off or of hurting yourself in some way: not at all Total score: 4 Depression Screening Interpretation: Negative Depression Screening Done: Yes Source: Developed by Drs. Pascual Toledo, Fatimah Roy, Clinton Lopez and colleagues, with an educational richie from [employer]. Thrive Questionnaire Date Thrive assessed: 07/01/25 I am a: Patient Within the past 12 months, did the food you bought not last and you didn't have the money to get more?: Never true Do you have trouble paying for medicines?: No Do you have trouble getting transportation to medical appointments?: No Do you have trouble paying your heating and electricity bill?: No Do you have trouble taking care of your child, family member or friend?: No Do you have trouble with day-to-day activities such as bathing, preparing meals, shopping, managing finances, etc.?: No Are you currently unemployed and looking for a job?: No Are you interested in more education?: No THRIVE Score: 0 AUDIT C Alcohol Use Questionnaire (AUDIT-C) 1. How often do you have a drink containing alcohol?: Never 3. How often do you have six or more drinks on one occasion?: Never Total Score: 0 CLAUDIO-7 AMB Questionnaire CLAUDIO-7 Date CLAUDIO - 7 assessed: 07/01/25 Feeling nervous, anxious, or on edge: 0 = Not at all Not being able to stop or control worryin = Not at all Worrying too much about different things: 0 = Not at all Trouble relaxin = Not at all Being so restless that it is hard to sit still: 0 = Not at all Becoming easily annoyed or irritable: 0 = Not at all Feeling afraid as if something awful might happen: 0 = Not at all Total CLAUDIO-7 score (0-4 normal; 5-9 mild; 10-14 moderate; 15-21 severe): 0 Source: Developed by Drs. Pascual Toledo, Fatimah Roy, Clinton Lopez and colleagues, with an educational richie from [employer]. Review of Systems Narrative CONSTITUTIONAL Negative HEAD/NECK Neck pain EAR/NOSE/MOUTH/THROAT Negative RESPIRATORY Negative CARDIOVASCULAR Negative GASTROINTESTINAL Negative MUSCULOSKELETAL Reports neck and upper back pain, tingling sensation, and pulling feeling. NEUROLOGICAL Reports tingling sensation in the neck and upper back PSYCHIATRIC Negative Physical exam (Primary Care) Vital Signs: Last Vital Signs Temp 97.7 F 07/01/25 09:22 Pulse 55 07/01/25 09:22 BP 120/76 07/01/25 09:22 Pulse Ox 99 07/01/25 09:22 Oxygen Delivery Method Room Air 07/01/25 09:22 BMI result Body Mass Index 22.5 GENERAL Well developed, Well nourished, in no apparent distress HEENT Head-Normocephalic Eyes- PERRLA, EOMI, Conjuctiva clear, lids WNL Ears- Canals clear, TMs WNL Mouth/Throat-No lesions, no erythema, no exudate Neck- Supple, No lymphadenopathy, thyroid WNL, Full ROM, nontender RESPIRATORY Normal I:E, Clear to auscultation CARDIOVASCULAR Regular, rate and rhythm, No murmurs or rubs GASTROINTESTINAL Soft, nontender, normal bowel sounds, no masses MUSCULOSKELETAL Back-Normal ROM, Tender in Thoracic/Lumbar with muscle tightness, Tender with motion, Straight leg raise negative, DTR 2+ symmetrical, Gait normal Joints- no swelling or deformity NEUROLOGICAL Gait normal PSYCHIATRIC Oriented to person, place and time Mood and affect WNL Appearance WNL Speech WNL Thought processes WNL Tobacco/Smoking Status: Tobacco use Status Tobacco use date assessed 07/01/25 07/01/25 09:24 Patient Tobacco Use Status Former Tobacco user 07/01/25 09:55 e-Cigarette/Vaping Use Former Use 07/01/25 09:55 PHQ-9: PHQ-9 Score PHQ-9: Total score 4 07/01/25 09:55 Depression Screening Interpretation: Negative Thrive Assessment: Date of Thrive Assessment Date Thrive assessed 07/01/25 07/01/25 09:24 Coding Level of Care Code New Pt New Pt Level 3 (07334) Patient Type New Diagnoses Neck pain M54.2 Time Spent (min) 25 Comment Time spent on chart review, H&P, patient education and orders. Assessment & Plan Assessment & Plan (1) Neck pain: Code(s): M54.2 - Cervicalgia Category: Medical Plan: The patient will have a neck x-ray to rule out nerve compression or other structural issues. A Medrolpak will be prescribed to reduce inflammation, and tizanidine will be provided as a muscle relaxant if covered by insurance. Gabapentin will be administered at bedtime to address nerve-related symptoms, and physical therapy will be arranged to aid in muscle recovery. A follow-up appointment is scheduled in six weeks to assess progress and adjust treatment as necessary. Plan I discussed with the patient the likely diagnosis of myofascial strain and the management plan, including the use of a Medrolpak, tizanidine, and gabapentin. We also talked about the importance of physical therapy and the need for a neck x-ray to rule out nerve compression. The patient was advised to follow up in six weeks to evaluate the effectiveness of the treatment and make any necessary adjustments. Orders: Orders XR cervical spine 3V 07/01/25 M54.2 - Cervicalgia, M79.602 - Pain in left arm PT Evaluation and Treatment 07/01/25 M54.2 - Cervicalgia, M79.602 - Pain in left arm Medications: New methylprednisolone (Medrol (Cristo)) PO PER PKG DIR for 6 days 21 ea 0RF FOR INFLAMATION cyclobenzaprine 5 mg PO TID PRN 60 tabs 0RF muscle spasm MDD FOR MUSCLE PAIN gabapentin 300 mg PO BEDTIME 60 caps 0RF FOR NERVE PAIN Patient Instructions: - Use the Medrolpak as prescribed to reduce inflammation. - Take tizanidine as needed for muscle relaxation, if covered by insurance. - Take gabapentin at bedtime to help with nerve pain. - Attend physical therapy sessions as scheduled. - Go to the hospital for a neck x-ray as instructed. - Follow up in six weeks for reassessment.
--- OUTSIDE RECORDS SUMMARY | 2025-07-01 11:00 | XMS_ITS | Clinical Summary ---
Author Organization [facility] Address [address] [place] [address] Care Team Providers Care Bag Turner Name Role Phone Ref, Has No Pcp Or Primary Care Provider Unavail able Allergies No known active allergies Medications No [...] 52 08/03/2024 12:42 PM EST Temperature 36.3 C (97.3 F) 08/03/2024 12:42 PM EST Respiratory Rate 0 08/03/2024 12:40 PM EST Oxygen Saturation 99% 08/03/2024 12:45 PM EST Inhaled Oxygen Concentration - - Weight 68.2 kg (150 lb 5.7 oz) 08/03/2024 8:34 A M EST Height 165.1 cm (5' 5 ) 08/03/2024 8:34 AM EST Body Mass Index 25.02 08/03/2024 8:34 AM EST Plan of Treatment Upcoming Encounters Date Type Department Care Team (Late st Contact Info) Description 07/08/2025 11:00 AM EDT Follow-Up [facility] [address] [place] [address] Kwasi Garrison MD [address] [place] [address] Health Maintenance Due Date Last Done Comments HIV Screening 1987 Hepatitis C Screening 1987 Varicella Vaccines (1 of 2 - 13+ 2-dose series) 1999 Hepatitis B Vaccines (1 of 3 - 19+ 3-dose series) 02/08 Pneumococcal Vaccine: Pediat fozia (0-5 Years) and At-Risk Patients (6-50 Years) (1 of 2 - PCV) 2006 DTaP,Tdap,and Td Vaccines (1 - Tdap) 2009 Diabetes Screening 2022 Alcohol/Substance Use Screening 09/09/2024 Depression Screening and Follow-Up 09/09/2024 Social Drivers of Health Annual Screening 09/09/2024 COVID-19 Vaccine ( - 2024- season) 2025 Influenza Vaccine (#1) 2025 RSV Vaccine (60+ years old a nd patients) (1 - 1-dose 75+ series) 2062 Medical Devices Implanted Type Area [employer] Supervisor Device Identifier Shelf Expiration Date Model / Serial / Lot Nerve Guide Matrix [id number] Neuragen 3d - [id number] Implanted:Qty: 1 on 08/03/2024 by Kwasi Garrison MD at 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
== END 2025-07-01 10:23 | disposition home or self-care (01) ==
LOC: HO.HMCHD 09:40
PROVIDERS: Visit Provider Physician Assistant Medical
DX: M54.2 Cervicalgia (principal)

== ENCOUNTER → 2025-07-01 10:49 | Outpatient (BNV) | payer OTHER, SELFPAY | PROVIDERS: PCP Physician Assistant Medical; Visit Provider Radiology Diagnostic Radiology | DX: M50.31 Other cervical disc degeneration, high cervical region (principal); M50.322 Other cervical disc degeneration at C5-C6 level | CPT/HCPCS: 72040 ==